=== PATIENT | female | born 1950 | race Caucasian/White ===

== ENCOUNTER 2024-08-11 06:44 | Day surgery (SDC) | payer MEDICARE, BC ==
[2024-08-10 10:42] VITALS: BMI 19.1
[2024-08-11] MEDS ORDERED: fentaNYL PF 100 MCG/2 ML SYRINGE ONE (07:44)
[2024-08-11] MEDS ORDERED: Rocuronium Bromide 10 MG/ML (10ML VIAL) ONE (07:44)
[2024-08-11] MEDS ORDERED: PROPOFOL 20 ML ONE (07:44)
[2024-08-11] MEDS ORDERED: Lidocaine 1% PF 5 ML VIAL ONE (07:44)
[2024-08-11] MEDS ORDERED: EPINEPHrine 1 MG/ML VIAL ONE (09:13)
[2024-08-11] MEDS ORDERED: CEFAZOLIN 2 GM VIAL ONE (09:15)
[2024-08-11] MEDS ORDERED: LevoFLOXacin D5W 500 mg (100 mL) BAG ONE (09:27)
[2024-08-11] MEDS ORDERED: Clindamycin/D5W 900 mg/50 ml Premix Bag ONE (09:30)
[2024-08-11] MEDS ORDERED: Ondansetron PF 4 MG/2 ML Vial ONE ×2 (09:49→10:19)
[2024-08-11] MEDS ORDERED: Dexamethasone 20 MG/5 ML VIAL ONE (09:49)
[2024-08-11] MEDS ORDERED: Ketorolac Tromethamine 30 MG (1 mL) VIAL ONE (10:19)
[2024-08-11] MEDS ORDERED: SUGAMMADEX SODIUM 200 MG/2 ML VIAL ONE (10:27)
[2024-08-11] MEDS ORDERED: Bupivacaine PF 0.5% 30 ML VIAL ONE (11:17)
[2024-08-11] MEDS ORDERED: HYDROcodone/Acetaminophen 5/325 mg Tablet ONE (11:38)
== END 2024-08-11 12:35 | disposition home or self-care (01) ==
LOC: SDC 06:44
PROVIDERS: ATTEND Neurological Surgery
PROC: 01NB0ZZ Release Lumbar Nerve, Open Approach (ICD-10-PCS; principal; 2024-08-11)
DX: M71.38 Other bursal cyst, other site (principal); M54.16 Radiculopathy, lumbar region; I10 Essential (primary) hypertension; M81.0 Age-related osteoporosis without current pathological fracture; M19.90 Unspecified osteoarthritis, unspecified site; E78.5 Hyperlipidemia, unspecified; F41.9 Anxiety disorder, unspecified; F32.A Depression, unspecified; Z90.49 Acquired absence of other specified parts of digestive tract; Z88.0 Allergy status to penicillin; Z96.653 Presence of artificial knee joint, bilateral; Z79.899 Other long term (current) drug therapy
CPT/HCPCS: 63267; 93005; J0171; J0665; J1100; J1885; J1956; J2405; J2704; J3490; 93010